=== PATIENT | female | born 1955 | race Caucasian/White ===

== ENCOUNTER 2019-12-31 14:57 | Outpatient (CLI) | payer BC, SELFPAY ==
[2019-12-31 15:31] LABS: Basophils Percent Auto 0.4 % (0.2-1.2); Eosinophils Absolute Auto 0.1 K/mm3 (0-0.3); Hematocrit 40.3 % (37.0-47.0); Immature Granulocyte Absolute 0.01 K/mm3 (0.00-0.031); Immature Granulocyte Percent A 0.2 % (0-0.5); Lymphocytes Absolute Auto 1.19 K/mm3 (0.9-3.2); Lymphocytes Percent Auto 23.1 % (18.3-44.2); Mean Corpuscular HGB Conc 32.3 g/dl (32-36); Mean Corpuscular Hemoglobin 31.6 pg (26-34); Mean Corpuscular Volume 97.8 fl (80-100); Mean Platelet Volume 11.4 fl (7.4-10.4); Monocytes Absolute Auto 0.5 K/mm3 (0.1-0.6); Monocytes Percent Auto 8.9 % (2.6-8.5); Neutrophils Absolute Auto 3.4 K/mm3 (1.3-6.7); Neutrophils Percent Auto 66.4 % (45.5-73.1); Platelet Count Result 164 k/mm3 (150-375); Red Blood Count 4.12 M/mm3 (4.2-5.4); Red Cell Distribution Width 13.7 % (11.5-14.5); White Blood Count 5.2 K/mm3 (4.5-10.0)
[2019-12-31 15:42] LABS: Alanine Aminotransferase 15 U/L (4-35); Albumin Level 4.7 g/dL (3.5-5.1); Alkaline Phosphatase 36 U/L (38-126); Aspartate Amino Transferase 25 U/L (14-36); Bilirubin,Total 0.2 mg/dL (0.2-1.3); Blood Urea Nitrogen 18 mg/dL (7-17); Calcium 9.6 mg/dL (8.4-10.2); Carbon Dioxide 27 mmol/L (22-30); Chloride 103 mmol/L (98-107); Cholesterol 193 mg/dL (0-200); Estimated Glomerular Filt Rate > 60; Glucose 124 mg/dL (65-105); HDL Direct 77 mg/dL; Potassium 4.1 mmol/L (3.4-5.0); Sodium 138 mmol/L (137-145); Triglycerides 143 mg/dL (<150)
[2019-12-31 15:53] LABS: LDL Cholesterol Direct 85 mg/dL
[2019-12-31 16:40] LABS: Vitamin D 25 Hydroxy 53.7 ng/mL
== END 2019-12-31 14:58 | disposition home or self-care (01) ==
PROVIDERS: PCP Internal Medicine; Visit Provider Internal Medicine
DX: E55.9 Vitamin D deficiency, unspecified (principal); I10 Essential (primary) hypertension
CPT/HCPCS: 36415; 80053; 80061; 82306; 84443; 85025

== ENCOUNTER 2020-01-30 11:26 | Outpatient (CLI) | payer BC, SELFPAY ==
--- NOTE | ~2020-01-30 | MM_ITS ---
EXAMINATION: MM diagnostic leonor BI w ellis HISTORY: Six-month follow-up for probably benign bilateral breast calcifications TECHNIQUE: Craniocaudal, mediolateral, and mediolateral oblique 3-D tomosynthesis images of the breas ts were performed and synthetic 2-D images were generated. Magnification views are also obtained. CAD analysis was submitted and interpreted. COMPARISON: 05/15/2019,04/29/2019, 01/14/2018, 11/24/2013 BREAST PARENCHYMAL COMPOSITION: The breasts are heterogeneously dense, which may obscure small masses . FINDINGS: Right breast: There are stable grouped calcifications in the posterior third of the upper outer quadr ant of the breast at the 11:00 location 10 cm from the nipple. These again appear to be dystrophic in morphology. No associated mass or architectural distortion is identified. Left breast: There are stable grouped calcifications in the posterior third of the upper outer quadra nt of the breast at the 1:00 location 9 cm from the nipple. These again appear to be dystrophic in mo rphology. No associated mass or architectural distortion is identified. IMPRESSION: 1. Stable, probably benign bilateral breast calcifications. 2. Recommend 6 month follow-up bilateral diagnostic mammogram. BI-RADS category 3, probably benign findings. Reviewed, dictated and finalized at location A.
== END 2020-01-30 11:27 | disposition home or self-care (01) ==
PROVIDERS: PCP Internal Medicine; Visit Provider Internal Medicine
DX: R92.8 Other abnormal and inconclusive findings on diagnostic imaging of breast (principal)
CPT/HCPCS: 77062; 77066; G0279

== ENCOUNTER 2021-04-21 11:53 | Outpatient (CLI) | payer BC, SELFPAY ==
--- NOTE | ~2021-04-21 | MM_ITS ---
EXAMINATION: MM diagnostic leonor BI w ellis HISTORY: Follow-up for probably benign bilateral breast calcifications from 01/30/2020 TECHNIQUE: Craniocaudal, mediolateral, and mediolateral oblique 3-D tomosynthesis images of the breas ts were performed and synthetic 2-D images were generated. Magnification views are also obtained. CAD analysis was submitted and interpreted. COMPARISON: 01/30/2020, 05/15/2019, 04/29/2019, 01/14/2018 BREAST PARENCHYMAL COMPOSITION: The breasts are heterogeneously dense, which may obscure small masses . FINDINGS: Right breast: There are stable punctate, dystrophic calcifications in the posterior third of the uppe r outer quadrant of the breast at the 11:00 location 8 cm from the nipple. There has been no suspicio us interval change. No associated mass or architectural distortion is identified. Left breast: There are stable grouped, dystrophic calcifications in the posterior third of the upper outer quadrant of the breast at the 1:00 location 9.5 cm from the nipple. No associated mass or archi tectural distortion is identified. IMPRESSION: 1. Bilateral breast calcifications stable for two years and considered benign. No mammographic eviden ce of malignancy. 2. Recommend routine screening mammography in one year. BI-RADS Category 2: Benign finding(s). Reviewed, dictated and finalized at location A. IMPRESSION: 1. Bilateral breast calcifications stable for two years and considered benign. No mammographic evidence of malignancy. 2. Recommend routine screening mammography in one year. BI-RADS Category 2: Benign finding(s).
== END 2021-04-21 11:54 | disposition home or self-care (01) ==
PROVIDERS: PCP Internal Medicine; Visit Provider Internal Medicine
DX: R92.8 Other abnormal and inconclusive findings on diagnostic imaging of breast (principal)
CPT/HCPCS: 77062; 77066; G0279

== ENCOUNTER → 2021-06-16 12:02 | Outpatient (CLI) | payer BC, SELFPAY ==
--- NOTE | ~2021-06-16 | MR_ITS ---
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 TECHNIQUE: Magnetic resonance imaging (MRI) of the brain and brainstem was performed without and with 14 mL MultiHance intravenous co Sequences included sagittal and axial T1-weighted FSE, axial diffusi on-weighted FS EPI, axial T2*-weighted GRE, axial T2-weighted FLAIR Propeller, axial T2-weighted Prop rishi, small ystsi-af-tybj coronal FIESTA, small smypg-ih-yfbz coronal T1-weighted FSE, and small fie ld-of-view axial T1-weighted SPGR. Postcontrast sequences included axial T1-weighted FSE, small field -of-view coronal T1-weighted FSE, and small innfq-su-lfam axial T1-weighted SPGR. Apparent diffusion coefficient (ADC) maps were created. COMPARISON: None. FINDINGS: There are scattered areas of nonspecific increased T2-weighted signal intensity in the cere bral white matter, which is within normal limits for the patient's age. There is no intracranial hemo rrhage, acute infarction, or abnormal intracranial mass lesion. The ventricles are normal in size. Th e areas of the facial nerves are normal. There is dependent fluid in sphenoid sinus. The mastoid air cells are normal. IMPRESSION: 1. Normal aging brain. Reviewed, dictated and finalized at location A. DRIER IMPRESSION: 1. Normal aging brain.
[2021-06-16 12:50] LABS: Estimated Glomerular Filt Rate > 60
== END ==
PROVIDERS: Visit Provider Psychiatry & Neurology Neurology
DX: G51.32 Clonic hemifacial spasm, left (principal)
CPT/HCPCS: 70553; A9577

== ENCOUNTER → 2021-12-14 10:22 | Outpatient (CLI) | payer BC, SELFPAY ==
--- NOTE | ~2021-12-14 | XR_ITS ---
XR lumbar spine 2-3V DATE: 12/14/2021 10:38 INDICATION: Chronic back pain. Persistent back pain despite surgery last year. TECHNIQUE: AP, lateral, coned lateral lumbosacral views COMPARISON: 10/26/2016 lumbar spine and lumbar MRI FINDINGS: Since 10/26/2016 there are bilateral pedicle screws and rods and interbody spinal fusion at L5-S1. Hardware appears intact without evidence of fracture or displacement. Diffuse osteopenia. Mild thoracolumbar dextroscoliosis. No fracture or bone destruction is evident. The included lower thoracic and lumbar pedicles appear in tact. The lumbar interspaces appear relatively well preserved. The sacroiliac joints appear normal. Numerous bilateral calcified pelvic phleboliths. Small calcifications overlie the right kidney, suggesting possible nephrolithiasis. IMPRESSION: Status post posterior and interbody spinal fusion at L5-S1 Reviewed, dictated and finalized at location A.
== END ==
PROVIDERS: PCP Family Medicine; Visit Provider Family Medicine
DX: M54.9 Dorsalgia, unspecified (principal); Z98.1 Arthrodesis status
CPT/HCPCS: 72100

== ENCOUNTER 2022-10-02 15:28 | Outpatient (CLI) | payer MEDICARE, SELFPAY ==
--- NOTE | ~2022-10-02 | MM_ITS ---
EXAMINATION: MM screening leonor BI w ellis HISTORY: Screening TECHNIQUE: Craniocaudal and mediolateral oblique 3-D tomosynthesis images were obtained and synthetic 2-D images were generated. CAD analysis was submitted and interpreted. COMPARISON: Comparison to multiple prior studies sequentially, with oldest reviewed study dated 05/16. BREAST PARENCHYMAL COMPOSITION: FINDINGS: The left breast is stable without evidence for malignancy. No significant change to punctat e benign-appearing calcifications of the left breast. There are developing asymmetries in the upper o uter and lower central aspect of the right breast. There is developing clustered indeterminate calcif ications associated with the asymmetry in the upper outer quadrant. IMPRESSION: 1. Developing right breast asymmetries and clustered indeterminate calcifications. 2. Additional mammographic views and possible breast ultrasound are recommended. BI-RADS Category 0: Incomplete: Needs additional imaging evaluation. Reviewed, dictated and finalized at location A. IMPRESSION: 1. Developing right breast asymmetries and clustered indeterminate calcificatio ns. 2. Additional mammographic views and possible breast ultrasound are recommended . BI-RADS Category 0: Incomplete: Needs additional imaging evaluation.
== END 2022-10-02 15:29 | disposition home or self-care (01) ==
LOC: ANHIMG 15:29
PROVIDERS: PCP Family Medicine; Visit Provider Family Medicine
DX: Z12.31 Encounter for screening mammogram for malignant neoplasm of breast (principal); R92.8 Other abnormal and inconclusive findings on diagnostic imaging of breast
CPT/HCPCS: 77063; 77067

== ENCOUNTER 2022-11-16 12:33 | Outpatient (CLI) | payer MEDICARE, MEDICAID, SELFPAY ==
--- NOTE | ~2022-11-16 | MM_ITS ---
EXAMINATION: MM diagnostic leonor RT w ellis HISTORY: Right breast calcifications and asymmetries on screening mammogram TECHNIQUE: Additional 3-D tomosynthesis images of the right breast were performed and synthetic 2-D i mages were generated. Magnification views are also obtained. CAD analysis was submitted and interpret ed. COMPARISON: Prior mammograms dating back to 01/14/2018 BREAST PARENCHYMAL COMPOSITION: The breasts are heterogeneously dense, which may obscure small masses . FINDINGS: There is a return to baseline fibroglandular appearance with spot compression of the right breast in the areas questioned on screening mammogram. There are grouped dystrophic right breast calc ifications with slight increase in number since prior examinations. No suspicious calcifications are identified. IMPRESSION: 1. No mammographic evidence of malignancy. 2. Recommend routine screening mammography in one year. BI-RADS Category 2: Benign finding(s). Reviewed, dictated and finalized at location A.
== END 2022-11-16 12:34 | disposition home or self-care (01) ==
LOC: ANHIMG 12:34
PROVIDERS: PCP Family Medicine; Visit Provider Family Medicine
DX: R92.8 Other abnormal and inconclusive findings on diagnostic imaging of breast (principal)
CPT/HCPCS: 77061; 77065; G0279

== ENCOUNTER 2023-04-07 12:37 | Emergency (ER) | payer MEDICARE, SELFPAY ==
--- NOTE | 2023-04-07 12:41 | ED.FEMALEGU ---
HPI - Female Genitourinary General Chief complaint: Urogenital-Female Stated complaint: Urogenital Female Time Seen by Provider: 04/07/23 12:38 Source: patient Mode of arrival: ambulatory Limitations: no limitations History of Present Illness HPI Narrative: Margie is a 67-year-old female patient presenting to the clinic today with complaints of possible urinary tract infection that started last night. She reports is having burning and frequency with urination. She denies any flank pain or abdominal pain. She denies any fever or chills. Related Data Home Medications Medication Instructions Recorded Confirmed cream base no.9 (bulk) (HRT Base applic topical 12/04/19 01/05/23 cream) clonazepam 0.5 mg tablet 0.5 mg PO DAILY 09/19/21 01/05/23 Allergies Allergy/AdvReac Type Severity Reaction Status Date / Time pseudoephedrine Allergy Unknown rash Verified 12/07/22 15:11 Review of Systems Review of Systems: Pertinent positives per HPI. Patient denies any fever, chills, rash, headache, visual changes, dizziness, cough, runny nose, sore throat, shortness of breath, chest pain, palpitations, nausea, vomiting, diarrhea, constipation, abdominal pain. [facility] Family History Family History Father Cerebrovascular accident Patient's father is Alcoholism Heart disease Grandparent Breast cancer Mother Patient's mother is , Onset Age: 90 Breast cancer Jaw cancer Heart disease Social History Social History Smoking status: Former smoker Smoking end date: 07/16/02 Alcohol intake: current Drinks per week: 4 Alcohol use details: wine and whiskey Substance use: current Lack of Transportation: No Lack of Food: Never True Current Housing: I Have Housing Concerned About Future Housing: No Difficulty Paying Gas/Electric Bills: No Difficulty Paying for Meds: No Currently Unemployed: No Education: Trade/Vocational Certificate Difficulty w/ Childcare or Family Care: No Living arrangements: with family Occupation/Education: retired Gender identity (if verbalized by the patient): Female Sexual Orientation (if Verbalized by the Patient): Straight or Heterosexual Comments At the time of my signature, I reviewed and agree with the nursing past medical, surgical, social, and family history. There is no relevant family history pertinent to the patient complaint. Exam Narrative: General: Well-developed, well nourished, in no apparent distress. Head: Normocephalic, atraumatic. Cardio: Regular rate and rhythm, s1 and s2 normal, no murmur appreciated. Resp: Clear to auscultation bilaterally, no rhonchi, rales, wheezing or rubs. Abdomen: Soft, pliable, bowel sounds present in all quadrants, non-tender to palpation, no organomegly, no CVAT tenderness. Course Course Emergency Course: Portions of this record may have been created with voice recognition software. Level of Care: Express Care Visit Vital Signs Vital signs: Vital signs reviewed MDM - Female Genitourinary MDM Narrative Medical decision making narrative: At the time of visit patient is resting comfortably on the exam table. UA was obtained however it is skewed due to azo. Will send in prescription for Bactrim and send the urine for culture. Supportive measures were discussed with the patient she voiced understanding the discharge instructions and agrees to treatment plan. Differential Diagnosis Differential diagnosis: Likely urinary tract infection and cystitis Discharge Plan Discharge Clinical Impression: Acute UTI Patient Disposition: Home, Self-Care Condition: Stable Instructions: Antibiotic Form, Urinary Tract Infection in Women (ED) Additional Instructions: UA dip is skewed due to azo. We will send urine for culture Start Bactrim as pre
[2023-04-07 12:55] VITALS: BP 153/84; PULSE 80; RESP 16; TEMP 35.9; O2SAT 98
== END 2023-04-07 12:58 | disposition home or self-care (01) ==
PROVIDERS: Emergency Provider Nurse Practitioner Family; PCP Family Medicine
DX: N39.0 Urinary tract infection, site not specified (principal); Z87.891 Personal history of nicotine dependence; I10 Essential (primary) hypertension
CPT/HCPCS: 81003; 87086; 87088; 99213; G0463

== ENCOUNTER 2023-04-30 14:17 | Outpatient (CLI) | payer MEDICARE, SELFPAY ==
[2023-04-30 19:08] LABS: Appearance Urine Turbid (Clear); Bacteria Urine None Seen /hpf; Bilirubin Urine Negative (Negative); Blood Urine 1+ (Negative); Color Urine Dark Yellow (Yellow); Glucose Urine UA Negative (Negative); Ketones Urine Negative (Negative); Leukocyte Esterase Ur 3+ LEU/UL (NEGATIVE); Nitrate Urine Negative (Negative); Non Pathogenic Casts 0-2; Protein Urine Trace mg/dL (Negative); RBC Urine 0-2 /hpf (0-2); Specific Grav Ur 1.017 (1.001-1.035); Squamous Epithelial Cell Urine None seen /hpf (Few); Urobilinogen Urine 0.2 mg/dL (<2.0); WBC Urine >100 /hpf (0-3)
[2023-04-30 19:13] LABS: Add Urine Microscopic? YES
== END 2023-04-30 14:18 | disposition home or self-care (01) ==
LOC: ANHGOSHLAB 14:18
PROVIDERS: PCP Family Medicine; Visit Provider Family Medicine
DX: R30.0 Dysuria (principal)
CPT/HCPCS: 81001; 87086

== ENCOUNTER 2023-10-16 11:40 | Outpatient (CLI) | payer MEDICARE, SELFPAY ==
[2023-10-16 14:38] LABS: Alanine Aminotransferase 53 U/L (6-35); Albumin Level 4.6 g/dL (3.5-5.1); Alkaline Phosphatase 44 U/L (38-126); Anion Gap 3 mmol/L (4-12); Aspartate Amino Transferase 98 U/L (14-36); Bilirubin,Total 0.5 mg/dL (0.2-1.3); Blood Urea Nitrogen 11 mg/dL (7-17); Carbon Dioxide 32 mmol/L (22-30); Chloride 104 mmol/L (98-107); Cholesterol 220 mg/dL (0-200); Estimated Glomerular Filt Rate > 60; Glucose 101 mg/dL (65-110); HDL Direct 87 mg/dL; Potassium 4.6 mmol/L (3.4-5.0); Sodium 139 mmol/L (137-145); Triglycerides 51 mg/dL (<150)
[2023-10-16 14:48] LABS: LDL Cholesterol Direct 109 mg/dL
== END 2023-10-16 11:41 | disposition home or self-care (01) ==
PROVIDERS: PCP Family Medicine; Visit Provider Family Medicine
DX: I10 Essential (primary) hypertension (principal); Z13.220 Encounter for screening for lipoid disorders; Z13.228 Encounter for screening for other metabolic disorders
CPT/HCPCS: 36415; 80053; 80061

== ENCOUNTER 2023-11-12 12:14 | Outpatient (CLI) | payer MEDICARE, SELFPAY ==
--- NOTE | ~2023-11-12 | DEXA_ITS ---
Bone Density Report Name: BRIT LOWE Age: 68 Sex: Female Ethnicity: White Date of : 1955 Indication: postmenopausal osteoporosis; height loss; history of glucocorticoids; seizure disorder; Referring Provider: BHUPENDRA RAUSCH Study: Bone densitometry was performed. Exam Date: November 12, 2023 Accession number: [id number] Bone Density: Region BMD T-score Z-score Classification AP Spine(L1, L2, L3) 0.810 -1.9 -0.1 Osteopenia Femoral Neck (Left) 0.727 -1.1 0.5 Osteopenia Total Hip (Left) 0.886 -0.5 0.8 Normal Femoral Neck (Right) 0.584 -2.4 -0.8 Osteopenia Total Hip (Right) 0.801 -1.2 0.1 Osteopenia Total Hip Mean 0.843 -0.9 0.5 Normal World Health Organization criteria for BMD impression classify patients as: Normal (T-score at or above -1.0), Osteopenia (T-score between -1.0 and -2.5), or Osteoporosis (T-score at or below -2.5). 10-year Fracture Risk(1): Major Osteoporotic Fracture 24% Hip Fracture 6.5% Reported Risk Factors: [place] (), Neck BMD=0.584, BMI=29.3, glucocorticoids, alcohol use (1) FRAX(R) Version 3.08. Fracture probability calculated for an untreated patient. Fracture probability may be lower if the patient has received treatment. Previous Exams: Region Exam Age BMD T-score BMD Change BMD Change Date g/cm2 vs Baseline vs Previous AP Spine (L1-L3) 11/12/2023 68 0.810 -1.9 0.071 (9.5%)# 0.071 (9.5%)# 12/11/2018 63 0.739 -2.5 Total Hip(Left) 11/12/2023 68 0.886 -0.5 0.021 (2.4%)# 0.021 (2.4%)# 12/11/2018 63 0.865 -0.6 Total Hip(Right) 11/12/2023 68 0.801 -1.2 0.023 (2.9%)# 0.023 (2.9%)# 12/11/2018 63 0.778 -1.3 *Denotes significance at 95% confidence level, LSC for AP Spine = 0.022 g/cm2, LSC for Total Hip = 0.027 g/cm2 # Denotes dissimilar scan types or analysis methods Clinical Information Provided by Patient: Has taken Glucocorticoids Has 3 or more alcoholic drinks per day Has used the following medications: Calcium, VIT SHAKE Has the following medical conditions: Any Seizure Disorders Patient maximum height was 66 Menopause Age: 53 Does not regularly consume dairy products Drinks caffeinated beverages Onset of menses at age 15 Number of children 0 Impression: The patient has low bone mass, based on the Right Femoral Neck T-score. The patient has an estimated ten-year risk of hip fracture of 6.5% and an estimated ten-year risk of major fracture of 24%, base
== END 2023-11-12 12:15 | disposition home or self-care (01) ==
PROVIDERS: PCP Family Medicine; Visit Provider Family Medicine
DX: M81.0 Age-related osteoporosis without current pathological fracture (principal); Z13.820 Encounter for screening for osteoporosis; M85.88 Other specified disorders of bone density and structure, other site; M85.852 Other specified disorders of bone density and structure, left thigh; M85.851 Other specified disorders of bone density and structure, right thigh
CPT/HCPCS: 77080

== ENCOUNTER 2023-11-13 11:02 | Outpatient (CLI) | payer MEDICARE, SELFPAY ==
[2023-11-13 19:51] LABS: Alanine Aminotransferase 20 U/L (6-35); Albumin Level 4.8 g/dL (3.5-5.1); Alkaline Phosphatase 40 U/L (38-126); Anion Gap 10 mmol/L (4-12); Aspartate Amino Transferase 31 U/L (14-36); Bilirubin,Total 0.6 mg/dL (0.2-1.3); Blood Urea Nitrogen 14 mg/dL (7-17); Calcium 10.3 mg/dL (8.4-10.2); Carbon Dioxide 23 mmol/L (22-30); Chloride 104 mmol/L (98-107); Cholesterol 203 mg/dL (0-200); Estimated Glomerular Filt Rate > 60; Glucose 94 mg/dL (65-110); HDL Direct 70 mg/dL; Potassium 4.2 mmol/L (3.4-5.0); Sodium 137 mmol/L (137-145); Triglycerides 82 mg/dL (<150)
[2023-11-13 20:05] LABS: LDL Cholesterol Direct 107 mg/dL
== END 2023-11-13 11:03 | disposition home or self-care (01) ==
LOC: ANHGOSHLAB 11:04
PROVIDERS: PCP Family Medicine; Visit Provider Family Medicine
DX: R74.8 Abnormal levels of other serum enzymes (principal); Z13.29 Encounter for screening for other suspected endocrine disorder; Z13.220 Encounter for screening for lipoid disorders
CPT/HCPCS: 36415; 80053; 80061; 84443

== ENCOUNTER 2023-12-06 07:31 | Outpatient (CLI) | payer MEDICARE, SELFPAY ==
--- NOTE | ~2023-12-06 | MM_ITS ---
EXAMINATION: MM screening leonor BI w ellis HISTORY: Screening TECHNIQUE: Craniocaudal and mediolateral oblique 3-D tomosynthesis images were obtained and synthetic 2-D images were generated. CAD analysis was submitted and interpreted. COMPARISON: Comparison to multiple prior studies sequentially, with oldest reviewed study dated 04/15. BREAST PARENCHYMAL COMPOSITION: Not dense: There are scattered areas of fibroglandular density. FINDINGS: Stable right breast asymmetry and benign-appearing calcifications in the upper outer quadra nt. There is no evidence of suspicious mass, calcification, or architectural distortion to suggest ma lignancy in either breast. There has been no suspicious interval change. IMPRESSION: 1. No mammographic evidence of malignancy. 2. Recommend routine screening mammography in one year. BI-RADS Category 2: Benign finding(s). Reviewed, dictated and finalized at location A.
== END 2023-12-06 07:32 | disposition home or self-care (01) ==
PROVIDERS: PCP Family Medicine; Visit Provider Family Medicine
DX: Z12.31 Encounter for screening mammogram for malignant neoplasm of breast (principal)
CPT/HCPCS: 77063; 77067

== ENCOUNTER 2024-04-24 13:25 | Outpatient (CLI) | payer MEDICARE, SELFPAY ==
--- NOTE | ~2024-04-24 | XR_ITS ---
XR shoulder LT min 2V Ordering provider: Adonis Moore DO History: . M25.512 - Pain in left shoulder . Comparison: None. FINDINGS: BONES: No acute fracture or dislocation. JOINT SPACES: The acromioclavicular joint is normal. The glenohumeral joint shows mild osteoarthritic changes with osteophytes seen in the humerus head Inferiorly SOFT TISSUES: Normal. IMPRESSION: No acute osseous abnormality left shoulder. Reviewed, dictated and finalized at location A.
== END 2024-04-24 13:26 | disposition home or self-care (01) ==
LOC: ANHASCIMG 13:26
PROVIDERS: PCP Family Medicine; Visit Provider Family Medicine
DX: M25.512 Pain in left shoulder (principal)
CPT/HCPCS: 73030

== ENCOUNTER 2024-11-17 10:25 | Outpatient (CLI) | payer MEDICARE, SELFPAY ==
--- OUTSIDE RECORDS SUMMARY | 2024-11-17 11:18 | XMS_ITS | Referral Summary ---
Author Organization [facility] Building [address] Address [address] [place] [address] Care Team Providers Care Executive Creative Director Name Role Phone Adonis Moore DO Primary Care Provider [phone] Allergies No known active allergies Medications verapamil ER (VERELAN) 240 mg 24 hr capsule Take 1 capsule (240 mg total) by mouth nightly Active ketoconazole (NIZORAL) 2 % cream APPLY TO UNDERARM RASH TWICE DAILY FOR 2-4 WEEKS UNTIL RESOLVED, THEN NEEDED FOR RECURRENCE 3 Active SUMAtriptan (IMITREX) 100 mg tabletIndicatio ns:Migraine Take 1 tablet (100 mg total) by mouth once as needed for migraine Active clonazePAM (KlonoPIN) 0.5 mg tablet TAKE 2 TABLETS BY MOUTH NIGHTLY. 90 tablet 5 Active Active Problems Problem Noted Date Diagnosed Date DDD (degenerative disc disease), lumbar 09/25/19 18 Lumbar facet arthropathy 09/24/2017 Spondylolisthesis at L5-S1 level 09/24/2017 Abnormal cytology findings 11/29/2013 Overview (10/19/2016): Abnormal Pap smear Vaginal atrophy 11/29/2013 Overview (10/20/2016): Vaginal atrophy Menopausal syndrome 11/29/2013 Overview (10/20/2016): Female climacteric state Meralgia paraesthetica 11/22/2009 Immunizations Immunization Administration Dates Next Due Influenza, Quadrivalent, Spl it, Preservative Free, Intramuscular 09/25/2017 Pfizer SARS-CoV-2 Monovalent Vaccination (12+ Yrs) PURPLE 07/07/2021 Tdap 06/29/2018 Social History Tobacco Use Types Packs/Day Years Used Date Smoking Tobacco: Former Smokeless Tobacco: Never Alcohol Use Standard Drinks/Week Comments Yes 0 (1 standard drink = 0.6 oz pur e alcohol) AUDIT-C Answer Date Recorded Q1: How often do you have a drink containing alc ohol? 2-3 times a week 07/28/2024 Q2: How many drinks containi ng alcohol do you have on a typical day when you are drinking? 1 or 2 07/28/2024 Q3: How often do you have si x or more drinks on one occasion? Never 07/28/2024 Comments No Sex and Gender Information Value Date Recorded Sex Assigned at Not on file Legal Sex Female 10:32 PM SENIOR CARE PROVIDER Gender Identity Not on file Sexual Orientation Not on file Last Filed Vital Signs Vital Sign Reading Time Taken Comments Blood Pressure 144/80 07/28/2024 2:37 PM SENIOR CARE PROVIDER Pulse 94 07/28/2024 2:37 PM SENIOR CARE PROVIDER Temperature - - Respiratory Rate 16 07/28/2024 2:37 PM SENIOR CARE PROVIDER Oxygen Saturation 94% 07/28/2024 2:37 PM SENIOR CARE PROVIDER Inhaled Oxygen Concentration - - Weight 75.3 kg (166 lb) 07/28/2024 2:37 PM SENIOR CARE PROVIDER Height 169.4 cm (5' 6.69 ) 07/28/2024 2:37 PM CS T Body Mass Index 26.24 07/28/2024 2:37 PM SENIOR CARE PROVIDER Plan of Treatment Not on file Procedures Procedure Name Priority Date/Time Associated Diagnosis Comments PAP AND HIGH RISK HPV, REFLEX TO GENOTYPING Routine 08/31/2021 4:38 PM SENIOR CARE PROVIDER Well woman exam from Last 3 Months or Most Recently Relevant to Health Maintenance Results * Pap and High Risk HPV, reflex to Genotyping (08/31/2021 4:38 PM SENIOR CARE PROVIDER) Thin prep (Pap test) 08/31/2021 4:38 PM SENIOR CARE PROVIDER 09/05/2021 8:39 AM SENIOR CARE PROVIDER Narrative PATHOLOGY [facility] - 09/06/2021 10:53 AM SENIOR CARE PROVIDER EPIC results best viewed via link to PDF [place] [id number] [facility], [place], [place] [address] Tele: Anna Marie López MD - Commissary Assistant CYTOLOGY REPORT Note to Patients: This report may contain a detailed description of human tissue sent by a health care provider to the laboratory for pathologic evaluation. The content of this report is essential for diagnosis and may provide important critical findings. This information may be unfamiliar to patients to review without a medical professional present. It is advised that the patient review this report in the presence of a health care provider who can answer questions and explain the details. Patient Name: MARGIE FAJARDO Address: [address] [place] [address] Gender: F : 1955 (Age: 66) Service: Location: [facility] : [id number] Hospital #: [id number] Patient Type: [facility] SPECIMEN Taken: 08/31/2021 Reported: 09/06/2021 Physician(s): Abby Robert M.D. FINAL DIAGNOSIS: Specimen Type: - ThinPrep Pap and HPV w/ reflex Genotyping Statement of Specimen Adequacy: Source: Cervical/Endocervical - Satisfactory for evaluation - Case screened using computer assisted imaging technology General Categorization: - Negative for intraepithelial lesion or malignancy Interpretation: - Specimen sent for HPV testing per physician order. xbb/09/06/2021 10:53 EARLINE Bledsoe (ASCP) Report Reviewed and Electronically Signed By EARLINE Bledsoe (ASCP) Clerical Data Follow A; [id number] ADDENDA: Addendum Comment Ancillary Testing: HPV High Risk Group (16, 18, 31, 33, 35, 39, 45, 51, 52, 56, 58, 59, 66 and 68) - Not Detected Reference Range: Not Detected This test was performed using the RAJENDRA [id number] EARLINE Jacobs (ASCP) Date Ordered: 09/06/2021 Status: Signed Out Date Complete: 09/07/2021 By: EARLINE Jacobs (ASCP) Date Reported: 09/07/2021 CLINICAL DIAGNOSIS AND HISTORY Menstrual History: Post-menopausal REPORT IMAGES AND/OR SCANNED DOCUMENTS ONLY VIEWABLE IN PDF FORMAT The Pap test is a screening test used to aid in the detection of cervical cancer and its precursors. It should not be the sole means by which malignant and premalignant lesions are diagnosed. Both false negative and false positive results may occur. It also has poor sensitivity for the detection of endometrial lesions and should not be used to evaluate suspected endometrial abnormalities. For these reasons it is most important to obtain Pap tests at regular intervals, as recommended by your physician or nurse practitioner. us Abby Robert MD LAB CYTOLOGY ORDERABLES Fin al Result PATHOLOGY [facility] Laboratory Receiving [address] [place] [address] from Last 3 Months or Most Recently Relevant to Health Maintenance Insurance [facility] [employer] Care Teams Executive Creative Director Relationship Specialty Start Date End Date Adonis Moore DO PCP - General Family Medicine 06/28/22
--- OUTSIDE RECORDS SUMMARY | 2024-11-17 11:18 | XMS_ITS | Clinical Summary ---
Author Organization [facility] Address [address] [place] [address] Care Team Providers Care Risk Management Intern Name Role Phone Manny Schneider MD Primary Care Provider [phone] Source Comments [facility],non-owned Affiliates and Associated Physician Practices is amultiple site organization consisting of ambulatory clinics and hospital sitesin [place], [place], [place] and [place]. This disclosure is being madepursuant to the Care Everywhere program and may not contain all information available regarding this patient. Last updated 18.[facility] Allergies Active Allergy Reactions Criticality Noted Date Comments Cetirizine Rash Medium Reaction: Rash, Nyquil Urticaria 04/13/2008 Medications * Be aware that medications may not be up to date on this document. Alwaysverify current medications with the patient. ciclopirox (PENLAC) 8 % solution APPLY BY TOPICAL ROUTE QD TO AFFECTED AREA PREFERABLY AT BEDTIME OR 8 HOURS BEFORE WASHING 0 8 Active traMADol (ULTRAM) 50 MG tablet TK 1 T PO Q 12 H PRN FOR SEVERE PAIN RATED 8/10 OR HIGHER 0 8 Active clindamycin (CLEOCIN) 1 % lotion DARRION THIN LAYER EXT AA BID 1 8 Active verapamil CR (ISOPTIN-SR) 180 MG tablet TK 1 T PO QD WF 1 8 Active clonazePAM (KlonoPIN) 0.5 MG tablet Take 2 (two) tablets by mouth Active Active Problems Problem Noted Date Diagnosed Date DDD (degenerative disc disease), lumbar 09/25/19 18 Lumbar facet arthropathy 09/24/2017 Synovial cyst of lumbar facet joint 09/24/2017 Spondylolisthesis at L5-S1 level 09/24/2017 Meralgia paraesthetica 11/22/2009 Resolved Problems Problem Noted Date Diagnosed Date Resolved Date Colon cancer screening 10/04/200911/22 Overview (10/04/2009): never Screening for cervical cancer 09/29/2008 11/22/2009 Other screening mammogram 09/29/2008 Overview (09/29/2008): 2006 wnl, Immunizations Immunization Administration Dates Next Due INFLUENZA VACCINE, TRIV. (AF LURIA, FLUZONE TRIVALENT; 6MO+) (IIV3) 07/04/2011(Deferred: Patient Refused) INFLUENZA VACCINE, QUADR. (F LUZONE; FLULAVAL; FLUARIX; AFLURIA QUADRIVALENT; 6MO+), 0.5 ML (IIV4) 09/25/2017 Family History Medical History Relation Name Comments Arthritis Father Heart Disease Father Stroke Father Cancer Maternal Grandmother breast Asthma Mother Cancer Mother breast Cancer Other maternal aunt breast Relation Name Status Comments Father Maternal Grandmother Mother Other maternal aunt Alive Social History Tobacco Use Types Packs/Day Years Used Date Smoking Tobacco: Former Cigarettes 0 16 0 07/16/1994 - 07/16/2010 Smokeless Tobacco: Never Tobacco Cessation:Counseling Given: Not Answered Alcohol Use Standard Drinks/Week Comments Yes 15 (1 standard drink = 0.6 oz pu re alcohol) social PHQ-2 Answer Date Recorded Patient Health Questionnaire-2 Score 0 08/15/2024 Comments No Sex and Gender Information Value Date Recorded Sex Assigned at Female 10/31/2021 12:13 PM CDT Legal Sex Female 6:03 AM TAR ROOFER Gender Identity Female 10/31/2021 12:13 PM CDT Sexual Orientation Not on file 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 Not on file Not on file Not on file Last Filed Vital Signs Vital Sign Reading Time Taken Comments Blood Pressure 130/86 08/15/2024 10:25 AM TAR ROOFER Pulse 111 09/26/2017 8:09 AM CDT Temperature 37.5 C (99.5 F) 09/26/2017 8:09 AM CDT Respiratory Rate 17 09/26/2017 8:09 AM CDT Oxygen Saturation 91% 09/26/2017 8:09 AM CDT Inhaled Oxygen Concentration - - Weight 79.7 kg (175 lb 12.8 oz) 025 10:25 AM TAR ROOFER Height 167.6 cm (5' 6 ) 04/30/2018 10:3 6 AM CDT Body Mass Index 28.37 04/30/2018 10:36 AM CDT Plan of Treatment Health Maintenance Due Date Last Done Comments BONE DENSITY TESTING 1955 COLOGUARD (AGES 45-75) - COL ON CA SCREENING 1955 COLON MONITORING 1955 COLONOSCOPY - COLON CA SCREENING 1955 CT COLONOGRAPHY - COLON CA SCREENING 1955 Colorectal Cancer Screening 1955 FIT - COLON CA SCREENING 1955 FLEX SIG - COLON CA SCREENING 1955 MAMMOGRAM 1955 HEPATITIS C SCREENING 06/11/1975 DTAP/TDAP/TD VACCINES (1 - Tdap) 1976 PNEUMOCOCCAL VACCINE 50+ (1 of 1 - PCV) 2007 ZOSTER VACCINE (1 of 2) 2007 LIPID TESTING 08/29/2017 08/29/2012 COVID-19 VACCINE (4 - 2023-2 5 season) 2024 07/07/2021, 10/31/2020, 10/10/2020 MEDICARE AWV CALENDAR YEAR 2024 INFLUENZA VACCINE (Season Ended) 2025 07/07/2021, 09/25/2017 Respiratory Syncytial Virus (RSV) Vaccine Pt: or over 60 yrs (1 - 1-dose 75+ series) 2032 DEPRESSION SCREENING Completed 08/15/2024 HEPATITIS B VACCINE Aged Out No longe r eligible based on patient's age to complete this topic HIB VACCINE Aged Out No longer eligi ble based on patient's age to complete this topic HPV VACCINE Aged Out No longer eligi ble based on patient's age to complete this topic MENINGOCOCCAL (Group B) VACCINE SHARED DECISION-MAKING Aged Out No longer eligible based on patient's age to complete this topic MENINGOCOCCAL GROUPS A/C/Y/W VACCINE Aged Out No longer eligible b ased on patient's age to complete this topic Medical Devices Implanted Type Area Internal Combustion Engineer Device Identifier Shelf Expiration Date Model / Serial / Lot Graft Bone Grftn Dbm Plif 5x2.5cm - [id number] Implanted:Qty : 1 on 09/24/2017 by Lorenzo Adams MD at [facility] Spine Lumbar [employer] 03/05/2020 [id number] / [id number] / Solera Set Screws Implanted:Qty : 4 on 09/24/2017 by Lorenzo Adams MD at [facility] Spine Lumbar [id number] / / Solera 7.5 X 45 Implanted:Qty : 4 on 09/24/2017 by Lorenzo Adams MD at [facility] Spine Lumbar [id number] / / Spcr Spnl [id number] Vrtstck Cpstn Implanted:Qty : 1 on 09/24/2017 by Lorenzo Adams MD at [facility] Spine Lumbar Medtronic Sofamor [employer] 04/30/2020 [id number] / / [id number] Solera Curved 30mm Isreal Implanted:Qty : 2 on 09/24/2017 by Lorenzo Adams MD at [facility] Spine Lumbar [id number] / / Procedures Procedure Name Priority Date/Time Associated Diagnosis Comments LIPID PROFILE Routine 08/29/2012 10:40 AM TAR ROOFER Chest Pain from Last 3 Months or Most Recently Relevant to Health Maintenance Results * LIPID PROFILE (08/29/2012 10:40 AM TAR ROOFER) Cholesterol 176 100 - 199 mg/dL [facility] INSURANCE BILL Triglycerides 48 0 - 149 mg/dL [facility] INSURANCE BILL HDL Cholesterol 81 >39 mg/dL [facility] INSURANCE BILL Comment: According to ATP-III Guidelines, HDL-C >59 mg/dL is considered a negative risk factor for CHD. VLDL Calculated 10 5 - 40 mg/dL [facility] INSURANCE BILL LDL Calculated 85 0 - 99 mg/dL [facility] INSURANCE BILL Blood specimen (specimen) BLOOD SPECIMEN / Unknown 08/29/2012 10:40 AM TAR ROOFER 08/29/2012 7:32 PM TAR ROOFER Narrative Resulting Agency Comment [facility] [address] [facility] [id number] Mani Campos MD LAB - CHEMISTRY ORDERABLES Final Result [facility] INSURANCE BILL [address] [place] [address] from Last 3 Months or Most Recently Relevant to Health Maintenance Insurance [facility] MANAGED MEDICARE ADV * Guarantor: MARGIE HERRERA Account Type Relation to Patient Date of Phone Billing Address Personal/Family 1955 [address] [place] [address] Advance Directives Documents on File Type Date Recorded Patient Hot Press Operator Expl anation Adv Directive/Living Will/POA 10/01/2017 4:37 PM * Full Code (Latest Code Status on File) Date Activated Date Inactivated Comments 09/24/2017 5:44 PM 09/26/2017 11:34 AM Care Teams Risk Management Intern Relationship Specialty Start Date End Date Manny Schneider MD [address] [place] [address] PCP - General Internal Medicine 08/28/17
--- OUTSIDE RECORDS SUMMARY | 2024-11-17 11:18 | XMS_ITS | Clinical Summary ---
Author Organization [facility] Address [address] [place] [address] Care Team Providers Care Drawing Press Operator Name Role Phone Adonis Moore DO Primary Care Provider [phone] Allergies No known active allergies Medications verapamil [...] Vaccination (12+ Yrs) PURPLE 07/07/2021 Tdap 06/29/2018 Surgical History Surgery Date Site/Laterality Comments LUMBAR FUSION 07/16/2017 - 07/15/2018 L5 /S1 CONIZATION 1970s Abnormal pap smears: Conization CONIZATION Abnormal pap smears: Conization BACK SURGERY Medical History Medical History Date Comments Hypertension Abnormal Pap smear of cervix Abn ormal pap smears Menopause ovarian failure Family History Medical History Relation Name Comments Heart disease Father Heart disease; Heart attack Father's Brother 2 Myocardia l infarction; Breast cancer Maternal Grandmother Cancer , breast; Breast cancer Mother Cancer, breast ; Heart disease Mother Heart disease; Breast cancer Mother's Sister 3 Cancer, b reast; Migraines Mother's Sister 4 Migraines; Migraines Other 2 Migraines; Migraines Sister 2 Migraines; Relation Name Status Comments Father Alive Father's Brother 1 Alive Father's Brother 2 Maternal Grandmother Alive Mother Alive Mother's Sister 1 Alive Mother's Sister 2 Alive Mother's Sister 3 Mother's Sister 4 Other 1 Alive Other 2 Sister 1 Alive Sister 2 Social History Tobacco Use Types Packs/Day Years [...] on file Legal Sex Female 10:32 PM MASTER CHEF Gender Identity Not on file Sexual Orientation Not on file Obstetrics History Para Term AB IAB SAB Ectopic Multiple Livin g Live Births 0 0 0 0 0 0 0 0 0 0 0 Last Filed Vital Signs Vital Sign Reading Time Taken Comments Blood Pressure 144/80 07/28/2024 2:37 PM MASTER CHEF Pulse 94 07/28/2024 2:37 PM MASTER CHEF Temperature - - Respiratory Rate 16 07/28/2024 2:37 PM MASTER CHEF Oxygen Saturation 94% 07/28/2024 2:37 PM MASTER CHEF Inhaled Oxygen Concentration - - Weight 75.3 kg (166 lb) 07/28/2024 2:37 PM MASTER CHEF Height 169.4 cm (5' 6.69 ) 07/28/2024 2:37 PM CS T Body Mass Index 26.24 07/28/2024 2:37 PM MASTER CHEF Plan of Treatment Health Maintenance Due Date Last Done Comments Breast Cancer Screening-Mammogram 1955 Colon Cancer Screening-Colonoscopy 1955 Depression Screening 1955 Fall Risk Assessment 1955 Hepatitis C Screening 1955 Osteoporosis Screening-Bone Density Scan 1955 Hepatitis B Screening 1975 Pneumococcal vaccine 65+ (1 of 1 - PCV) 2007 Zoster Vaccine (1 of 2) 2007 Well Visit 65+ 08/31/2022 08/31/2021 Covid-19 Vaccine (4 - 2023-2 5 season) 2024 07/07/2021, 10/31/2020, 10/10/2020 Influenza Vaccine (Season Ended) 2025 09/26/19 18 DTaP/Tdap/Td Vaccine (2 - Td or Tdap) 06/29/2028 06/29/2018 Cervical Cancer Screening Discontinued 08/31/2021 Procedures Procedure Name Priority Date/Time Associated Diagnosis Comments PAP AND HIGH RISK HPV, REFLEX TO GENOTYPING Routine 08/31/2021 4:38 PM MASTER CHEF Well woman exam from Last 3 Months or Most Recently Relevant to Health Maintenance Results * Pap and High Risk HPV, reflex to Genotyping (08/31/2021 4:38 PM MASTER CHEF) Thin prep (Pap test) 08/31/2021 4:38 PM MASTER CHEF 09/05/2021 8:39 AM MASTER CHEF Narrative PATHOLOGY [facility] - 09/06/2021 10:53 AM MASTER CHEF [facility] results best viewed via link to PDF [address] [address] Tele: Anna Marie López MD - Conditioning Machine Operator CYTOLOGY REPORT Note to Patients: This report [...] the details. Patient Name: MARGIE FAJARDO Address: [address] [place] [address] Gender: F : 1955 (Age: 66) Service: Location: [facility] #: [id number] Patient Type: [facility] SPECIMEN Taken: 08/31/2021 Reported: 09/06/2021 Physician(s): Abby [...] LAB CYTOLOGY ORDERABLES Fin al Result PATHOLOGY [facility] Laboratory Receiving [address] [place] [address] from Last 3 Months or Most Recently Relevant to Health Maintenance Insurance [facility] MEDICARE ADVANTAGE Care Teams Drawing Press Operator Relationship Specialty Start Date End Date Adonis Moore DO PCP - General Family Medicine 06/28/22
[2024-11-17 13:04] LABS: LDL Cholesterol Direct 105 mg/dL
[2024-11-17 13:09] LABS: Alanine Aminotransferase 21 U/L (6-35); Albumin Level 4.6 g/dL (3.5-5.1); Alkaline Phosphatase 42 U/L (38-126); Anion Gap 7 mmol/L (4-12); Aspartate Amino Transferase 49 U/L (14-36); Bilirubin,Total 0.7 mg/dL (0.2-1.3); Blood Urea Nitrogen 15 mg/dL (7-17); Calcium 9.5 mg/dL (8.4-10.2); Carbon Dioxide 31 mmol/L (22-30); Chloride 100 mmol/L (98-107); Cholesterol 261 mg/dL (0-200); Estimated Glomerular Filt Rate > 60; Glucose 105 mg/dL (65-110); HDL Direct 104 mg/dL; Potassium 4.2 mmol/L (3.4-5.0); Sodium 138 mmol/L (137-145); Triglycerides 60 mg/dL (<150)
== END 2024-11-17 10:26 | disposition home or self-care (01) ==
LOC: ANHGOSHLAB 10:26
PROVIDERS: PCP Family Medicine; Visit Provider Student in an Organized Health Care Education/Training Program
DX: I10 Essential (primary) hypertension (principal)
CPT/HCPCS: 36415; 80053; 80061

== ENCOUNTER 2025-01-22 15:49 | Outpatient (CLI) | payer MEDICARE, SELFPAY ==
--- NOTE | ~2025-01-22 | MM_ITS ---
EXAMINATION: MM screening leonor BI w ellis HISTORY: Screening mammogram, family history of breast cancer in her mother and sister. TECHNIQUE: Craniocaudal and mediolateral oblique 3-D tomosynthesis images were obtained and synthetic 2-D images were generated. CAD analysis was submitted and interpreted. COMPARISON: 12/06/2023, 11/16/2022, 10/02/2022, 04/21/2021 BREAST PARENCHYMAL COMPOSITION:Not Dense. There are scattered areas of fibroglandular density. FINDINGS: No suspicious mass, calcification, or architectural distortion are identified in either cee ast to suggest malignancy. There has been no suspicious interval change. IMPRESSION: No mammographic evidence of malignancy. Recommend routine screening mammography in one year. BI-RADS Category 1: Negative Reviewed, dictated and finalized at [facility].
--- OUTSIDE RECORDS SUMMARY | 2025-01-22 15:53 | XMS_ITS | Clinical Summary ---
Author Organization [facility] Address [address] [place] [address] Care Team Providers Care Beveling Machine Operator Name Role Phone Adonis Moore DO Primary Care Provider [phone] Allergies No known active allergies Medications verapamil [...] on file Legal Sex Female 10:32 PM CARDIOVASCULAR DISEASE SPECIALIST Gender Identity Not on file Sexual Orientation Not on file Obstetrics History Para Term AB IAB SAB Ectopic Multiple Livin g Live Births 0 0 0 0 0 0 0 0 0 0 0 Last Filed Vital Signs Vital Sign Reading Time Taken Comments Blood Pressure 144/80 07/28/2024 2:37 PM CARDIOVASCULAR DISEASE SPECIALIST Pulse 94 07/28/2024 2:37 PM CARDIOVASCULAR DISEASE SPECIALIST Temperature - - Respiratory Rate 16 07/28/2024 2:37 PM CARDIOVASCULAR DISEASE SPECIALIST Oxygen Saturation 94% 07/28/2024 2:37 PM CARDIOVASCULAR DISEASE SPECIALIST Inhaled Oxygen Concentration - - Weight 75.3 kg (166 lb) 07/28/2024 2:37 PM CARDIOVASCULAR DISEASE SPECIALIST Height 169.4 cm (5' 6.69) 07/28/2024 2:37 PM CS T Body Mass Index 26.24 07/28/2024 2:37 PM CARDIOVASCULAR DISEASE SPECIALIST Plan of Treatment Health Maintenance Due Date [...] REFLEX TO GENOTYPING Routine 08/31/2021 4:38 PM CARDIOVASCULAR DISEASE SPECIALIST Well woman exam from Last 3 Months or Most Recently Relevant to Health Maintenance Results * Pap and High Risk HPV, reflex to Genotyping (08/31/2021 4:38 PM CARDIOVASCULAR DISEASE SPECIALIST) Thin prep (Pap test) 08/31/2021 4:38 PM CARDIOVASCULAR DISEASE SPECIALIST 09/05/2021 8:39 AM CARDIOVASCULAR DISEASE SPECIALIST Narrative PATHOLOGY [facility] - 09/06/2021 10:53 AM CARDIOVASCULAR DISEASE SPECIALIST [facility] results best viewed via link to PDF [address] [address] Tele: Anna Marie López MD - Conductor And Engineer CYTOLOGY REPORT Note to Patients: This report [...] the details. Patient Name: MARGIE FAJARDO Address: [address] [place] [address] Gender: F : 1955 (Age: 66) Service: Location: [facility] #: [id number] Patient Type: [facility] SPECIMEN Taken: 08/31/2021 Reported: 09/06/2021 Physician(s): Abby [...] LAB CYTOLOGY ORDERABLES Fin al Result PATHOLOGY [facility] Laboratory Receiving [address] [place] [address] from Last 3 Months or Most Recently Relevant to Health Maintenance Insurance [facility] MEDICARE ADVANTAGE Care Teams Beveling Machine Operator Relationship Specialty Start Date End Date Adonis Moore DO PCP - General Family Medicine 06/28/22
--- OUTSIDE RECORDS SUMMARY | 2025-01-22 15:53 | XMS_ITS | Referral Summary ---
Author Organization [facility] Address [address] [place] [address] Care Team Providers Care Hog Sawyer Name Role Phone Adonis Moore DO Primary Care Provider [phone] Allergies No known active allergies Medications verapamil [...] on file Legal Sex Female 10:32 PM METAL MELTER Gender Identity Not on file Sexual Orientation Not on file Last Filed Vital Signs Vital Sign Reading Time Taken Comments Blood Pressure 144/80 07/28/2024 2:37 PM METAL MELTER Pulse 94 07/28/2024 2:37 PM METAL MELTER Temperature - - Respiratory Rate 16 07/28/2024 2:37 PM METAL MELTER Oxygen Saturation 94% 07/28/2024 2:37 PM METAL MELTER Inhaled Oxygen Concentration - - Weight 75.3 kg (166 lb) 07/28/2024 2:37 PM METAL MELTER Height 169.4 cm (5' 6.69) 07/28/2024 2:37 PM CS T Body Mass Index 26.24 07/28/2024 2:37 PM METAL MELTER Plan of Treatment Not on file Procedures Procedure Name Priority Date/Time Associated Diagnosis Comments PAP AND HIGH RISK HPV, REFLEX TO GENOTYPING Routine 08/31/2021 4:38 PM METAL MELTER Well woman exam from Last 3 Months or Most Recently Relevant to Health Maintenance Results * Pap and High Risk HPV, reflex to Genotyping (08/31/2021 4:38 PM METAL MELTER) Thin prep (Pap test) 08/31/2021 4:38 PM METAL MELTER 09/05/2021 8:39 AM METAL MELTER Narrative PATHOLOGY [facility] - 09/06/2021 10:53 AM METAL MELTER EPIC results best viewed via link to PDF [place] [address] [facility] [place], [place] [address] Tele: Anna Marie López MD - Field Specialist CYTOLOGY REPORT Note to Patients: This report [...] the details. Patient Name: MARGIE FAJARDO Address: [address] [place] [address] Gender: F : 1955 (Age: 66) Service: Location: [facility] : [id number] Hospital #: [id number] Patient Type: [facility] SPEC[facility] Taken: 08/31/2021 Reported: 09/06/2021 Physician(s): Abby [...] LAB CYTOLOGY ORDERABLES Fin al Result PATHOLOGY [facility] Laboratory Receiving [address] [place] [address] from Last 3 Months or Most Recently Relevant to Health Maintenance Insurance [facility] [place] [address] Care Teams Hog Sawyer Relationship Specialty Start Date End Date Adonis Moore DO PCP - General Family Medicine 06/28/22
--- OUTSIDE RECORDS SUMMARY | 2025-01-22 15:53 | XMS_ITS | Clinical Summary ---
Author Organization [id number] Address [address] [place] [address] Care Team Providers Care Resolution Analyst Name Role Phone Manny Schneider MD Primary Care Provider [phone] Source Comments [id number],non-owned Affiliates and Associated Physician Practices is amultiple site organization consisting of ambulatory clinics and hospital sitesin [place], [place], [place] and [place]. This disclosure is being madepursuant to the Care Everywhere program and may not contain all information available regarding this patient. 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 Not on file Not on file Not on file Last Filed Vital Signs Vital Sign Reading Time Taken Comments Blood Pressure 130/86 08/15/2024 10:25 AM MACHINE HOSTLER Pulse 111 09/26/2017 8:09 AM CDT Temperature 37.5 C (99.5 F) 09/26/2017 8:09 AM CDT Respiratory Rate 17 09/26/2017 8:09 AM CDT Oxygen Saturation 91% 09/26/2017 8:09 AM CDT Inhaled Oxygen Concentration - - Weight 79.7 kg (175 lb 12.8 oz) 025 10:25 AM MACHINE HOSTLER Height 167.6 cm (5' 6) 04/30/2018 10:3 6 AM CDT Body Mass [...] MEDICARE AWV CALENDAR YEAR 2024 INFLUENZA VACCINE (#1) 2025 , 09/25/2017 Respiratory Syncytial Virus (RSV) Vaccine Pt: [...] this topic Medical Devices Implanted Type Area Scallop Dredger Device Identifier Shelf Expiration Date Model / Serial / Lot Graft Bone Grftn Dbm Plif 5x2.5cm - [id number] Implanted:Qty : 1 on 09/24/2017 by Lorenzo Adams MD at [facility] Spine Lumbar [employer] 03/05/2020 [id number] / [id number] / Solera Set Screws Implanted:Qty : 4 on 09/24/2017 by Lorenzo Adams MD at [facility] Spine Lumbar [id number] / / Solera 7.5 X 45 Implanted:Qty : 4 on 09/24/2017 by Lorenzo Adams MD at [facility] Spine Lumbar [id number] / / Spcr Spnl [id number] Vrtstck Cpstn Implanted:Qty : 1 on 09/24/2017 by Lorenzo Adams MD at [facility] Spine Lumbar Medtronic Sofamor [employer] 04/30/2020 [id number] / / [id number] Solera Curved 30mm Isreal Implanted:Qty : 2 on 09/24/2017 by Lorenzo Adams MD at [facility] Sp[facility] Lumbar [id number] / / Procedures Procedure Name Priority Date/Time Associated Diagnosis Comments LIPID PROFILE Routine 08/29/2012 10:40 AM MACHINE HOSTLER Chest Pain from Last 3 Months or Most Recently Relevant to Health Maintenance Results * LIPID PROFILE (08/29/2012 10:40 AM MACHINE HOSTLER) Cholesterol 176 100 - 199 mg/dL [facility] [...] BLOOD SPECIMEN / Unknown 08/29/2012 10:40 AM MACHINE HOSTLER 08/29/2012 7:32 PM MACHINE HOSTLER Narrative Resulting Agency Comment [facility] [address] [facility] [id number] Mani Campos MD LAB - CHEMISTRY ORDERABLES Final Result [facility] INSURANCE BILL [address] [place] [address] from Last 3 Months or Most Recently Relevant to Health Maintenance Insurance [facility] MANAGED MEDICARE ADV * Guarantor: MARGIE HERRERA Account Type Relation to Patient Date of Phone Billing Address Personal/Family 1955 [address] [place] [address] Advance Directives Documents on File Type Date Recorded Patient Physical Therapist Technician Expl anation Adv Directive/Living Will/POA 10/01/2017 4:37 PM * Full Code (Latest Code Status on File) Date Activated Date Inactivated Comments 09/24/2017 5:44 PM 09/26/2017 11:34 AM Care Teams Resolution Analyst Relationship Specialty Start Date End Date Manny Schneider MD [address] [place] [address] PCP - General Internal Medicine 08/28/17
== END 2025-01-22 15:50 | disposition home or self-care (01) ==
LOC: ANHIMG 15:51
PROVIDERS: PCP Family Medicine; Visit Provider Student in an Organized Health Care Education/Training Program
DX: Z12.31 Encounter for screening mammogram for malignant neoplasm of breast (principal)
CPT/HCPCS: 77063; 77067